=== PATIENT | female | born 2000 | race Caucasian/White ===

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

== ENCOUNTER 2020-06-29 19:45 | Emergency (ER) | payer MEDICAID, SELFPAY ==
[2020-06-29 19:46] VITALS: BP 133/90; PULSE 104; RESP 18; TEMP 36.2; O2SAT 98; BMI 48.4
[2020-06-29 19:59] LABS: Mucous, Urine 0 SEEN /hpf (<or=2+); Red Blood Cells-Urine 0 SEEN /hpf (0-5)
[2020-06-29 20:04] LABS: Color, Urine Yellow (Yellow); Glucose, Dipstick Normal (Normal); Ketone-Dipstick Negative (Negative); Leukocyte Esterase-Dipstick 100 /ul (Negative); Nitrite-Dipstick Negative (Negative); Occult Blood-Urine Negative /ul (Negative); Protein-Dipstick 15 mg/dl (Negative); Specific Gravity, Urine 1.015 (1.002-1.030); Urine Bilirubin Dipstick Negative (Negative); Urine Clarity Sl. Cloudy (Clear); Urine Urobilinogen Normal (Normal)
[2020-06-29 20:36] LABS: Bacteria RARE /hpf (None Seen); Squamous Epithelial Cells - UA 0-5 SEEN /hpf (5-10); White Blood Cells 0-5 SEEN /hpf (0-5)
[2020-06-29] MEDS: Ondansetron ODT 4 MG Tablet PO (21:18)
[2020-06-29 21:28] LABS: Internal QC Validated? YES +Cl - CLEAR BKGD; Pregnancy, Urine Negative Negative
--- NOTE | 2020-06-29 21:35 | ED.VISSUMM ---
- ER Visit Summary Date of Service: 06/29/20 Chief Complaint: Abdominal pain and vomiting History of Present Illness: The patient is a 19 F with no primary care physician. She reports that she was nauseated when she woke up this morning 630 and vomited once. She had abdominal pain that began after this. She describes a sharp pain that is 7-10 at worst and 3-10 currently. Is relieved by remaining still and worsened by movement. She reports that she remains nauseated all day. But she has not vomited since then. Patient's last bowel movement was today. She has had no diarrhea. No melena or hematochezia. No dysuria or frequency. She has a Nexplanon in place and has not had a period since then. She denies any vaginal bleeding or discharge. Patient denies sick contacts. Has not been camping out of the country. No possible bad food exposure. Does not drink well water. No recent antibiotic use. Physical Examination: Vitals: Stable. Afebrile. General: Well-nourished and well-developed. Head: Normocephalic atraumatic. Neck: Supple, no lymphadenopathy. No JVD. Nontender. Cardiovascular: Regular rate and rhythm. No murmurs. Respiratory: No respiratory distress. Clear to auscultation bilaterally. Abdominal: Soft, mild diffuse tenderness palpation over her lower abdomen. There is no pain that localizes in the right lower quadrant, nondistended, normal bowel sounds. No guarding, rebound, or peritoneal signs. Back: Nontender. Extremities: Nontender, no edema. Skin: Normal color, no rash. Neurologic: Alert and oriented ?3. Cranial nerves II through XII are intact. Normal strength and sensation. Psych: Normal affect. Test Results: Urinalysis is negative. test is negative. Emergency Department Course and Treatment: Patient's only vomited one time. I do not think that she needs an IV for fluids. She was given Zofran p.o. and got significant relief from this. Treatment Plan: Patient will be discharged with Zofran. Instructed to follow-up the [facility] in 1 to 2 days if not improving. Return to the emergency department for any worsening symptoms. Disposition: To home in improved and stable condition. Impression: 1. Vomiting. 2. Abdominal pain. This note was generated with [employer] dictation software. It may contain incorrect words, spelling, and punctuation that were not noted in review of the chart prior to signing ED Disposition - Plan for ED Patient: Instructions: ED Vomiting (Adult) Prescriptions: Ondansetron [Zofran Odt] 4 mg PO Q8H PRN PRN #10 tablet PRN Reason: Nausea Referrals: Birdie Wheatley [NON-STAFF] - 1-2 Days if not improving
== END 2020-06-29 21:48 | disposition home or self-care (01) ==
LOC: ED 21:32
PROVIDERS: Emergency Provider Emergency Medicine
DX: R11.2 Nausea with vomiting, unspecified (principal); R10.9 Unspecified abdominal pain; R51.9 Headache, unspecified; R05 Cough; J45.909 Unspecified asthma, uncomplicated; Z97.8 Presence of other specified devices; F17.200 Nicotine dependence, unspecified, uncomplicated
CPT/HCPCS: 81001; 81025; 99283

== ENCOUNTER → 2020-07-25 09:36 | Outpatient (CLI) | payer MEDICAID, SELFPAY ==
[2020-06-29 19:46] VITALS: BMI 48.4
--- NOTE | 2020-07-25 09:38 | US_ITS ---
STUDY: ABDOMINAL ULTRASOUND - RIGHT UPPER QUADRANT REASON FOR VISIT: Female, 19 years old ABD PAIN TECHNIQUE: Ultrasound evaluation of the right upper quadrant was performed with real-time and static klein-scale imaging. TECHNICAL QUALITY: Adequate. COMPARISON: None. FINDINGS: Liver: The liver measures 17.2 cm. There is increased echogenicity consistent with fatty infiltration. The bile ducts are within normal limits. There is hepatic color flow. The direction of portal flow is hepatopetal. There is no demonstrated mass lesion. Gallbladder: Normal distended gallbladder. The gallbladder wall measures 2.1 mm. There is a negative sonographic Caraballo''s sign. There is no pericholecystic fluid. There are no gallstones. Common Bile Duct (C.B.D.): The common bile duct measures 3.6 mm. Pancreas: Normal size of the head, body and tail of the pancreas. There is normal echogenicity of the pancreas. There is no demonstrated pancreatic mass or cyst. Right Kidney: Normal size of the right kidney. The right kidney measures 11.6 cm in length. Normal renal cortex. There is no demonstrated renal mass or cyst. There is no right hydronephrosis. US/Gallbladder IMPRESSION: Fatty infiltration of the liver. Electronically Signed: Philly Fields MD at 10:55 EDT Tel , Service support ,
== END ==
PROVIDERS: PCP Registered Nurse; Referring Provider Registered Nurse; Visit Provider Registered Nurse
DX: R11.0 Nausea (principal); R12 Heartburn
CPT/HCPCS: 76705

== ENCOUNTER 2020-11-26 18:51 | Emergency (ER) | payer MEDICAID, SELFPAY ==
[2020-11-26 18:52] VITALS: BP 171/106; PULSE 110; RESP 20; TEMP 36.7; O2SAT 97; BMI 52.2
--- NOTE | 2020-11-26 19:02 | EKG12_ITS ---
Test Reason : CP SOB Blood Pressure : / mmHG Vent. Rate : 113 BPM Atrial Rate : 113 BPM P-R Int : 138 ms QRS Dur : 088 ms QT Int : 310 ms P-R-T Axes : 042 005 071 degrees QTc Int : 425 ms Sinus tachycardia Low voltage QRS (Precordial Leads) Confirmed by GWEN CHOW, ALANA ([id number]), book or script editor MANINDER HERNANDEZ ([id number]) on 12/01/2020 9:48:40 AM Referred By: JODI Confirmed By:ALANA HIDALGO MD
--- NOTE | 2020-11-26 20:06 | RAD_ITS ---
INDICATION: cough EXAMINATION/TECHNIQUE: X-RAY - XR Chest 1 View COMPARISON: None. FINDINGS: The lungs are clear. The cardiomediastinal silhouette is unremarkable. No pleural effusion or pneumothorax. No acute osseous abnormalities. RAD/Chest 1 View IMPRESSION: No acute radiographic abnormalities. Electronically Signed: Franklin Johnson MD at 20:32 EDT Tel , Service support ,
--- NOTE | 2020-11-26 21:25 | EDS_ITS ---
HPI History of Present Illness Chief Complaint: Chest Pain Narrative Narrative: Patient presents with cough congestion some subjective fevers rhinorrhea and upper airway congestion for the past few days. She was seen in an urgent care today. She has no chest pain she has no shortness of breath the cough is nonproductive although she does feel like she has some mucus in the back of her throat that is difficult to,. She has no pleuritic component no lower extremity edema, she has no DVT or PE risk factors. PFSH PFSH Home Medications NK 11/26/20 [History Last Taken Unknown] Allergy/AdvReac Type Severity Reaction Status Date / Time amoxicillin [From Augmentin] Allergy Hives Verified 11/26/20 18:54 clavulanic acid Allergy Hives Verified 11/26/20 18:54 [From Augmentin] Social History Smoking Status: Current every day smoker tobacco type: cigarettes ROS ROS ED ROS Narrative Past medical history: Reviewed Medications: Reviewed Social history: Noncontributory Review of systems: All systems negative except as indicated General: Subjective fevers Eyes: No visual changes ENT: Upper airway congestion as in HPI Neck: No neck pain Cardiovascular: No chest pain Respiratory: No shortness of breath. Cough as in HPI Gastrointestinal: No abdominal pain, nausea vomiting or diarrhea Genitourinary: No dysuria Musculoskeletal: Denies myalgias no difficulty with ambulation Skin: No rash Neurological: No memory loss, confusion or any focal weakness Psych: No recent behavioral changes Hematologic: No easy bleeding or easy bruising EXAM Physical Exam Narrative Exam Narrative: Physical exam General: Well nourished, Well developed, No Acute Distress Head: Normocephalic, Atraumatic Eyes: Conjunctiva not pale ENT: Moist mucous membranes. There is upper airway congestion, rhinorrhea as well as swollen nasal turbinates. There is some postnasal drip but normal soft palate and a normal voice. Neck: Supple, Nontender, No lymphadenopathy Cardiovascular: Regular rate, Regular rhythm Respiratory: No distress, CTA bilaterally Abdomen: Soft, Nontender, Nondistended Back: Nontender, Normal Inspection. Negative for: CVA tenderness Extremities: Nontender, No edema Skin: Normal color, No rash Neurological: Alert, Normal Strength, Normal Sensation Psychological: Normal affect Const Vital Signs: 11/26/20 18:52 11/26/20 20:12 Temperature 98.1 F Temperature Source Temporal Pulse Rate 110 H Respiratory Rate 20 H Respiratory Effort Normal Non-Labored Blood Pressure 171/106 H Blood Pressure Mean 127 Pulse Ox 97 Oxygen Delivery Method Room Air MDM MDM MDM Narrative Medical decision making narrative: She had a slight tachycardia upon arrival, this improved with sitting. She has normal x-ray and negative Covid she appears well she likely has an upper respiratory infection but it is likely viral. No further treatment is needed. Radiography Diagnostic Testing: Radiology Impression Chest X-Ray 11/26/20 20:06 IMPRESSION: No acute radiographic abnormalities. Electronically Signed: Franklin Johnson MD at 20:32 EDT Tel , Service support , Discharge Plan Triage Chief Complaint: Chest Pain ED Provider: Brigido Ervin Dx/Rx/DC Orders Clinical Impression: Acute upper respiratory infection Instructions: ED URI, Viral, No Abx (Adult) Prescriptions: No Action NK RF: 0 Primary Care Provider: Mary Rogers NP Referrals: Mary Rogers NP, HYDRAULIC CORRUGATING MACHINE OPERATOR-C [Primary Care Provider] - 2 Days Disposition Disposition: Home, Self Care
[2020-11-26 21:47] VITALS: PULSE 112; TEMP 37.5
== END 2020-11-26 21:48 | disposition home or self-care (01) ==
PROVIDERS: Emergency Provider Emergency Medicine; PCP Registered Nurse
DX: J06.9 Acute upper respiratory infection, unspecified (principal); F17.210 Nicotine dependence, cigarettes, uncomplicated
CPT/HCPCS: 71045; 87426; 93005; 99282

== ENCOUNTER 2021-03-23 09:23 | Emergency (ER) | payer MEDICAID, SELFPAY ==
[2021-03-23 09:23] VITALS: BP 159/99; PULSE 96; RESP 16; TEMP 36.7; O2SAT 98; BMI 61.9
--- NOTE | 2021-03-23 09:30 | EKG12_ITS ---
Test Reason : CP Blood Pressure : / mmHG Vent. Rate : 092 BPM Atrial Rate : 092 BPM P-R Int : 140 ms QRS Dur : 102 ms QT Int : 338 ms P-R-T Axes : 024 011 044 degrees QTc Int : 417 ms Normal sinus rhythm Normal ECG Confirmed by GWEN CHOW, ALANA ([id number]), editor index MANINDER HERNANDEZ ([id number]) on 03/29/2021 8:28:35 AM Referred By: Confirmed By:ALANA HIDALGO MD
--- NOTE | 2021-03-23 09:33 | EDS_ITS ---
HPI History of Present Illness Chief Complaint: Chest Pain Informant: patient Onset/Context/Timing Onset: Today (30 minutes prior to arrival) Activity at onset: sudden Timing: Continuous Quality: Positive for Heaviness Location: Substernal Worsened By: Nothing Relieved By: Nothing Associated Symptoms: Positive for Dyspnea, Cough and Lightheadedness; Negative for Nausea, Vomiting, Diaphoresis, Fever, Acid Reflux and Palpitations Narrative Narrative: Patient presents with chest pain that began today. Patient states it began rather suddenly approximately 30 minutes prior to arrival. Patient describes her pain as a heaviness. Patient states it is over the substernal area. Patient admits to some lightheadedness with the pain. Patient states she was also feeling lightheaded yesterday but did not have any chest pain. Patient states nothing makes it better and nothing makes it worse. Patient does admit to some shortness of breath. CVD Risk Factors: Positive for Diabetes and Smoking; Negative for Hypertension, Hypercholesterolemia and Family History 1' </=55 PE Risk Factors: Negative for Recent Travel/Surgery, Recent Immobilization, Prior DVT or PE and Cancer PFSH PFSH Medical History no medical history Home Medications NK 11/26/20 [History Last Taken Unknown] Allergy/AdvReac Type Severity Reaction Status Date / Time amoxicillin [From Augmentin] Allergy Hives Verified 11/26/20 18:54 clavulanic acid Allergy Hives Verified 11/26/20 18:54 [From Augmentin] Surgical History no surgical history no surgical history Social History Smoking Status: Current every day smoker tobacco type: cigarettes ROS ROS ED Constitutional Constitutional ED: Denies chills or fever(s) Eyes Eyes: Denies blurry vision or change in vision ENT ENT ED: Denies rhinorrhea or sore throat Cardiovascular Cardiovascular: Reports chest pain; Denies palpitations Respiratory/Chest Respiratory/Chest: Reports cough and dyspnea Gastrointestinal Gastrointestinal: Reports nausea; Denies abdominal pain or vomiting Genitourinary Genitourinary ED: Denies dysuria or hematuria Musculoskeletal Musculoskeletal: Reports back pain; Denies neck pain Integumentary Denies abscess or rash Neurologic Neurologic: Denies headache(s) or weakness Allergic/Immunologic Allergic/Immunologic ED: Denies mouth swelling or urticaria EXAM Physical Exam Const Vital Signs: 03/23/21 09:23 03/23/21 09:26 03/23/21 09:43 Temperature 98.1 F Temperature Source Oral Pulse Rate 96 102 H Respiratory Rate 16 Respiratory Effort Normal Non-Labored Respiratory Pattern Normal Blood Pressure 159/99 H 165/104 H Blood Pressure Mean 119 Pulse Ox 98 Oxygen Delivery Method Room Air 03/23/21 09:45 03/23/21 10:23 03/23/21 12:30 Temperature Temperature Source Pulse Rate 88 89 Respiratory Rate 18 16 Respiratory Effort Respiratory Pattern Blood Pressure 112/96 H 110/79 Blood Pressure Mean 101 89 Pulse Ox 100 100 98 Oxygen Delivery Method Room Air Room Air Room Air Positive well nourished, well developed and obese General Appearance ED: well developed Nutritional Appearance: obese HEENT normocephalic and atraumatic Eyes PERRL and EOMs intact bilaterally Neck supple and no JVD Chest Wall palpation of chest normal Resp normal respiratory effort and clear to auscultation bilaterally Effort and Inspection: Negative for respiratory distress Cardio regular rate, regular rhythm and no murmurs GI normal to inspection, nondistended, normoactive bowel sounds, soft to palpation, non-tender and non-distended Extremity normal to inspection General Extremety ED: Negative for edema or tenderness General Extremity: Negative for edema Neuro oriented x3, CN's II-XII intact bilaterally and no sensory deficits noted Sensorium / Orientation: awake and alert Motor Exam: strength 5/5 throughout Psych mental status grossly normal Heart Score History: Slightly/Non-Suspicious ECG: Normal Age: </= 45 years Risk Factors: 1 or 2 Risk Factors Troponin: </= Normal Limit Score: 1 MDM MDM MDM Narrative Medical decision making narrative: Patient was given aspirin here. EKG was obtained. On my interpretation, it showed a normal sinus rhythm with a rate of 92. OR interval, QRS interval, and QTc intervals were all normal. [place] was normal. There are no acute ST or T wave changes. Portable 1 view chest x-ray was obtained. On my interpretation, lung miranda are clear. There is normal cardiac silhouette. Bony thorax is normal. There is no acute process noted. Radiologist also interpreted the x-ray and agrees. CBC was within normal limits. Basic metabolic profile was within normal limits. D-dimer was obtained and was negative. Initial high-sensitivity troponin was normal at 5. 2-hour repeat high-sensitivity troponin was normal at 6. Patient has a HEART score of 1. Patient was advised that this is low risk for acute cardiac event. Patient was instructed to follow-up with her primary care physician in 5 to 7 days for further evaluation. Patient understands and is agreeable with the plan. All questions were answered. Lab Data Attestation: I reviewed the patient's lab results. Labs: Laboratory Results - last 24 hr 03/23/21 03/23/21 03/23/21 09:30 09:30 09:30 WBC 11.2 H RBC 4.89 Hgb 12.9 Hct 40.7 MCV 83.2 MCH 26.4 L MCHC 31.7 L RDW Std Deviation 44.1 H RDW Coeff of Giovana 14.6 Plt Count 405 MPV 10.3 Immature Gran % (Auto) 0.900 Neut % (Auto) 68.3 Lymph % (Auto) 25.2 [place] % (Auto) 4.7 Eos % (Auto) 0.6 Baso % (Auto) 0.3 Absolute Neuts (auto) 7.6 Absolute Lymphs (auto) 2.81 Nucleated RBC % 0 D-Dimer Quant (PE/DVT) <= 0.27 Sodium 140 Potassium 3.8 Chloride 108 H Carbon Dioxide 25.0 Anion Gap 7 BUN 8 Creatinine 0.60 Estim Creat Clear Calc 123.72 Est GFR (MDRD) Af Amer 163 Est GFR (MDRD) Non-Af 135 BUN/Creatinine Ratio 13.3 Glucose 101 Calcium 8.9 Troponin I High Sens 5 03/23/21 11:50 WBC RBC Hgb Hct MCV MCH MCHC RDW Std Deviation RDW Coeff of Giovana Plt Count MPV Immature Gran % (Auto) Neut % (Auto) Lymph % (Auto) [place] % (Auto) Eos % (Auto) Baso % (Auto) Absolute Neuts (auto) Absolute Lymphs (auto) Nucleated RBC % D-Dimer Quant (PE/DVT) Sodium Potassium Chloride Carbon Dioxide Anion Gap BUN Creatinine Estim Creat Clear Calc Est GFR (MDRD) Af Amer Est GFR (MDRD) Non-Af BUN/Creatinine Ratio Glucose Calcium Troponin I High Sens 6 Radiography Chest X-Ray - ED: 1 View, Read by ED Physician, Read by Radiologist and Normal Diagnostic Testing: Clinical Impression(s) from Imaging Studies Chest X-Ray 03/23/21 09:48 IMPRESSION: Normal x-ray examination of the chest. Electronically Signed: Fam Mendoza MD at 10:36 EST , Service support , EKG Initial EKG: Attestation: I personally reviewed and interpreted this EKG as follows: Interpretation: Sinus Rhythm (92) and No Acute Injury Pattern Prior EKG tracings: available for review Prior: Unchanged (11/26/2020) Discharge Plan Triage Chief Complaint: Chest Pain ED Provider: Meek Arzola Dx/Rx/DC Orders Clinical Impression: Chest pain Instructions: ED Chest Pain, Uncertain Cause Prescriptions: No Action NK RF: 0 Primary Care Provider: Mary Rogers NP Referrals: Mary Rogers NP, MAJOR APPLIANCE ASSEMBLY SUPERVISOR-C [Primary Care Provider] - 5-7 Days Disposition Disposition: Home, Self Care
[2021-03-23 09:43] VITALS: BP 165/104; PULSE 102
[2021-03-23] MEDS: Nitroglycerin SL (ED/IMG/CATH) 0.4 MG TABLET SL (09:43)
[2021-03-23] MEDS: Aspirin 81 MG TAB.CHEW 324 MG PO (09:43)
[2021-03-23 09:45] VITALS: O2SAT 100
--- NOTE | 2021-03-23 09:48 | RAD_ITS ---
STUDY: X-RAY CHEST REASON FOR EXAM: Female, 20 years old. Chest pain TECHNIQUE: Single AP portable view of the chest. COMPARISON: Comparison is made with prior study 11/26/2020 FINDINGS: EKG electrodes are seen Elevation of the right hemidiaphragm the lungs are clear. There is no demonstrated pleural abnormality. Normal size heart. Normal mediastinum and scott. Normal visualized pulmonary arteries. Normal visualized aortic arch and descending thoracic aorta. Normal visualized thoracic spine. Normal visualized ribs, clavicles, and shoulders. There is no demonstrated abnormality of the visualized soft tissue structures of the upper abdomen. RAD/Chest 1 View (Portable) IMPRESSION: Normal x-ray examination of the chest. Electronically Signed: Fam Mendoza MD at 10:36 EST , Service support ,
[2021-03-23 09:57] LABS: Absolute Lymphocyte Count 2.81 X10^3/uL (0.83-4.51); Absolute Neutrophil Count 7.6 X10^3/uL (2.0-7.7); Basophil# 0.03 X10^3/uL; Basophil% 0.3 % (0-1); Eosinophil# 0.07 X10^3/uL; Eosinophils% 0.6 % (0-5); Hematocrit 40.7 % (37-47); Hemoglobin 12.9 g/dL (12.0-15.0); Lymphocyte # 2.81 X10^3/ul (0.83-4.51); Lymphocyte % 25.2 % (19-41); Mean Corp Hgb Conc 31.7 g/dL (32-36); Mean Corpuscular Hgb 26.4 pg (27.0-32.0); Mean Corpuscular Volume 83.2 fL (81-99); Mean Platelet Vol. 10.3 fl (6.2-12.0); Monocyte# 0.52 X10^3/uL; Monocyte% 4.7 % (0-10); NRBC Flagged by Analyzer 0 % (0-5); Neutrophil # 7.64 X10^3/uL (2.7-7.7); Neutrophil % 68.3 % (47-70); Platelet Count 405 K/mm3 (150-450); RBC Distribution Width CV 14.6 % (11.6-14.6); RBC Distribution Width SD 44.1 fl (35.1-43.9); Red Blood Count 4.89 M/mm3 (4.2-5.4); White Blood Count 11.2 K/mm3 (4.4-11.0)
[2021-03-23 10:14] LABS: D-Dimer Quantitative (DVT/PE) <= 0.27 FEU/ug/m (0.27-0.49)
[2021-03-23 10:15] LABS: Anion Gap 7 (5-15); BUN 8 mg/dL (7-18); BUN/Creat Ratio 13.3 RATIO (10-20); Calcium,Total 8.9 mg/dL (8.5-10.1); Chloride 108 mmol/L (98-107); EST Glomerular Filtration Rate 135 mL/min (>60); Est Glom Filt Rate - Afr Amer 163 mL/min (>60); Estimated Creatinine Clearance 123.72 ml/min; Glucose 101 mg/dL (74-106); Potassium 3.8 mmol/L (3.5-5.1); Sodium Level 140 mmol/L (136-145); Troponin-I HS 5 pg/mL (3.0-54.0)
[2021-03-23 10:23] VITALS: BP 112/96; PULSE 88; RESP 18; O2SAT 100
[2021-03-23 12:20] LABS: Troponin-I HS 6 pg/mL (3.0-54.0)
[2021-03-23 12:30] VITALS: BP 110/79; PULSE 89; RESP 16; O2SAT 98
[2021-03-23 13:09] VITALS: BP 113/68; PULSE 96; RESP 18; O2SAT 100
== END 2021-03-23 13:17 | disposition home or self-care (01) ==
PROVIDERS: Emergency Provider Emergency Medicine; PCP Registered Nurse
DX: R07.9 Chest pain, unspecified (principal); R06.00 Dyspnea, unspecified; R05.9 Cough, unspecified; R42 Dizziness and giddiness; R11.0 Nausea; E66.9 Obesity, unspecified; Z68.44 Body mass index [BMI] 60.0-69.9, adult; F17.210 Nicotine dependence, cigarettes, uncomplicated
CPT/HCPCS: 71045; 80048; 84484; 85025; 85379; 87426; 93005; 99285; A4216

== ENCOUNTER 2021-08-11 18:39 | Emergency (ER) | payer MEDICAID, SELFPAY ==
[2021-08-11 18:40] VITALS: BP 157/105; PULSE 128; RESP 18; TEMP 36.8; O2SAT 98; BMI 49.6
--- NOTE | 2021-08-11 19:00 | EDS_ITS ---
HPI History of Present Illness Chief Complaint: Abd Pain Informant: patient Onset/Context/Timing Onset: Days Context: Gradual Onset Timing: Waxes and wanes Current Severity: Mild Maximum Severity: Moderate Narrative Narrative: Patient presents with 3-day history of lower abdominal pain. She states is across the entire lower abdomen but worse on the right. It is intermittent. Patient denies fever or chills. No nausea, vomiting, or diarrhea. Pain does not change when she eats. She denies urinary symptoms. She states she does not have menstrual cycles because she has the control implant. She does believe her doctor had told her in the past that she had ovarian cysts. [facility] Medical History Asthma Depression Edema Home Medications albuterol sulfate 2 puff INHALATION Q4H PRN PRN 08/11/21 [History Last Taken Unknown] hydrochlorothiazide 12.5 mg PO DAILY 08/11/21 [History Last Taken Unknown] ondansetron 4 mg PO Q8 PRN 08/11/21 [History Last Taken Unknown] sertraline 50 mg PO DAILY 08/11/21 [History Last Taken Unknown] sulfamethoxazole-trimethoprim [Bactrim DS] 1 tab PO BID #6 tab 08/11/21 [Rx Last Taken Unknown] Allergy/AdvReac Type Severity Reaction Status Date / Time amoxicillin [From Augmentin] Allergy Hives Verified 08/11/21 18:41 clavulanic acid Allergy Hives Verified 08/11/21 18:41 [From Augmentin] Social History Smoking Status: Current every day smoker tobacco type: cigarettes ROS ROS ED Constitutional Constitutional ED: Denies chills or fever(s) Eyes Eyes: Denies change in vision ENT ENT ED: Denies sore throat Cardiovascular Cardiovascular: Denies chest pain Respiratory/Chest Respiratory/Chest: Denies cough or dyspnea Gastrointestinal Gastrointestinal: Reports abdominal pain; Denies diarrhea, nausea or vomiting Genitourinary Genitourinary ED: Denies dysuria or hematuria Musculoskeletal Musculoskeletal: Denies back pain or neck pain Integumentary Denies rash Neurologic Neurologic: Denies headache(s) or weakness Allergic/Immunologic Allergic/Immunologic ED: Denies urticaria EXAM Physical Exam Const Vital Signs: 08/11/21 18:40 Temperature 98.3 F Temperature Source Temporal Pulse Rate 128 H Respiratory Rate 18 Blood Pressure 157/105 H Blood Pressure Mean 122 Pulse Ox 98 Oxygen Delivery Method Room Air Positive well nourished and well developed General Appearance ED: well developed HEENT Reports moist mucous membranes Eyes PERRL and EOMs intact bilaterally Neck supple Chest Wall inspection of chest normal and palpation of chest normal Resp normal respiratory effort and clear to auscultation bilaterally Cardio regular rate and regular rhythm GI Palpation: soft and tender other (Mild lower abdominal tenderness palpation. No guarding or rebound. Normal bowel sounds noted.) Neuro oriented x3 Sensorium / Orientation: alert Psych mental status grossly normal Skin no rashes or lesions noted MDM MDM MDM Narrative Medical decision making narrative: Patient given IV fluid and Zofran. Lab work, urinalysis, CT flank obtained. Lab Data Attestation: I reviewed the patient's lab results. Labs: Laboratory Results - last 24 hr 08/11/21 08/11/21 08/11/21 19:12 19:12 19:12 WBC 12.3 H RBC 4.70 Hgb 12.6 Hct 39.2 MCV 83.4 MCH 26.8 L MCHC 32.1 RDW Std Deviation 45.0 H RDW Coeff of Giovana 14.7 H Plt Count 372 MPV 10.2 Immature Gran % (Auto) 0.800 Neut % (Auto) 68.1 Lymph % (Auto) 25.2 [place] % (Auto) 4.6 Eos % (Auto) 1.0 Baso % (Auto) 0.3 Absolute Neuts (auto) 8.4 H Absolute Lymphs (auto) 3.10 Nucleated RBC % 0 Sodium 143 Potassium 3.6 Chloride 112 H Carbon Dioxide 26.0 Anion Gap 5 BUN 9 Creatinine 0.56 Estim Creat Clear Calc 132.56 Est GFR (MDRD) Af Amer 177 Est GFR (MDRD) Non-Af 147 BUN/Creatinine Ratio 16.2 Glucose 106 Calcium 8.6 Serum , Qual NEGATIVE Urine Color Urine Clarity Urine pH Ur Specific [place] Urine Protein Urine Glucose (UA) Urine Ketones Urine Occult Blood Urine Nitrite Urine Bilirubin Urine Urobilinogen Ur Leukocyte Esterase Urine RBC Urine WBC Ur Squamous Epith Cells Urine Bacteria Urine Mucus 08/11/21 19:20 WBC RBC Hgb Hct MCV MCH MCHC RDW Std Deviation RDW Coeff of Giovana Plt Count MPV Immature Gran % (Auto) Neut % (Auto) Lymph % (Auto) [place] % (Auto) Eos % (Auto) Baso % (Auto) Absolute Neuts (auto) Absolute Lymphs (auto) Nucleated RBC % Sodium Potassium Chloride Carbon Dioxide Anion Gap BUN Creatinine Estim Creat Clear Calc Est GFR (MDRD) Af Amer Est GFR (MDRD) Non-Af BUN/Creatinine Ratio Glucose Calcium Serum , Qual Urine Color Yellow Urine Clarity Sl. Cloudy Urine pH 6.0 Ur Specific [place] 1.025 Urine Protein 15 H Urine Glucose (UA) Normal Urine Ketones Negative Urine Occult Blood 10 H Urine Nitrite Negative Urine Bilirubin Negative Urine Urobilinogen Normal Ur Leukocyte Esterase 500 H Urine RBC 0-5 SEEN Urine WBC 50-100 SEEN Ur Squamous Epith Cells 10-25 SEEN Urine Bacteria 2+ Urine Mucus 0 SEEN Radiography Diagnostic Testing: Clinical Impression(s) from Imaging Studies Abdomen/Pelvis CT 08/11/21 20:22 IMPRESSION: No hydronephrosis or urinary tract calcifications. Electronically Signed: Jl Alonso MD ([place]) at 20:40 EDT , Treatment and Re-Evaluation Narrative: Lab work reveals mild elevation of white count to 12.3. Chemistry studies unremarkable. test negative. Urinalysis does show 50-100 white cells with 2+ bacteria, however 10-25 epithelial cells are also noted. CT scan reveals no evidence of kidney stone. Appendix is visualized and appears normal. No large cystic structures consistent with ovarian cyst appreciated. Test results discussed with the patient. I did advise her that her urine does appear to be infected, however was not a clean sample. We will treat her with 3 days of an antibiotic to ensure her urine is clear. Vital signs are be rechecked prior to discharge. Return instructions provided. Discharge Plan Triage Chief Complaint: Abd Pain ED Provider: Elaina Felix Dx/Rx/DC Orders Clinical Impression: UTI (urinary tract infection), Pelvic pain Instructions: ED CYSTITIS Female Adult Prescriptions: New sulfamethoxazole-trimethoprim [Bactrim DS] 800-160 mg tablet 1 tab PO BID Qty: 6 RF: 0 No Action hydrochlorothiazide 12.5 mg capsule 12.5 mg PO DAILY RF: 0 albuterol sulfate 90 mcg/actuation HFA aerosol inhaler 2 puff INHALATION Q4H PRN PRN (Reason: Wheezing) RF: 0 ondansetron 4 mg tablet,disintegrating 4 mg PO Q8 PRN (Reason: Nausea) RF: 0 sertraline 50 mg tablet 50 mg PO DAILY RF: 0 Primary Care Provider: Mary Rogers NP Referrals: Mary Rogers NP, [facility] [Primary Care Provider] - 1 Week if not improving Disposition Disposition: Home, Self Care
[2021-08-11 19:24] LABS: Mucous, Urine 0 SEEN /hpf (<or=2+)
[2021-08-11 19:24] LABS: Absolute Neutrophil Count 8.4 X10^3/uL (2.0-7.7); Basophil# 0.04 X10^3/uL; Basophil% 0.3 % (0-1); Eosinophil# 0.12 X10^3/uL; Hematocrit 39.2 % (37-47); Hemoglobin 12.6 g/dL (12.0-15.0); Lymphocyte % 25.2 % (19-41); Mean Corp Hgb Conc 32.1 g/dL (32-36); Mean Corpuscular Hgb 26.8 pg (27.0-32.0); Mean Corpuscular Volume 83.4 fL (81-99); Mean Platelet Vol. 10.2 fl (6.2-12.0); Monocyte# 0.57 X10^3/uL; Monocyte% 4.6 % (0-10); NRBC Flagged by Analyzer 0 % (0-5); Neutrophil # 8.36 X10^3/uL (2.7-7.7); Neutrophil % 68.1 % (47-70); Platelet Count 372 K/mm3 (150-450); RBC Distribution Width CV 14.7 % (11.6-14.6); White Blood Count 12.3 K/mm3 (4.4-11.0)
[2021-08-11 19:26] LABS: Color, Urine Yellow (Yellow); Glucose, Dipstick Normal (Normal); Ketone-Dipstick Negative (Negative); Leukocyte Esterase-Dipstick 500 /ul (Negative); Nitrite-Dipstick Negative (Negative); Occult Blood-Urine 10 /ul (Negative); Protein-Dipstick 15 mg/dl (Negative); Specific Gravity, Urine 1.025 (1.002-1.030); Urine Bilirubin Dipstick Negative (Negative); Urine Clarity Sl. Cloudy (Clear); Urine Urobilinogen Normal (Normal)
[2021-08-11] MEDS: Ketorolac 30 MG/ML Syringe IV (19:26)
[2021-08-11] MEDS: 0.9% Normal Saline 1,000 ML 1000 ML IV (19:26)
[2021-08-11 19:31] LABS: Squamous Epithelial Cells - UA 10-25 SEEN /hpf (5-10)
[2021-08-11 19:32] LABS: Bacteria 2+ /hpf (None Seen); Red Blood Cells-Urine 0-5 SEEN /hpf (0-5); White Blood Cells 50-100 SEEN /hpf (0-5)
[2021-08-11 19:36] LABS: Anion Gap 5 (5-15); BUN 9 mg/dL (7-18); BUN/Creat Ratio 16.2 RATIO (10-20); Calcium,Total 8.6 mg/dL (8.5-10.1); Chloride 112 mmol/L (98-107); Creatinine, Serum 0.56 mg/dL (0.55-1.02); EST Glomerular Filtration Rate 147 mL/min (>60); Est Glom Filt Rate - Afr Amer 177 mL/min (>60); Estimated Creatinine Clearance 132.56 ml/min; Glucose 106 mg/dL (74-106); Potassium 3.6 mmol/L (3.5-5.1); Sodium Level 143 mmol/L (136-145)
[2021-08-11 20:13] LABS: Internal QC Validated? YES +Cl - CLEAR BKGD; Pregnancy, Serum, hCG Quali. NEGATIVE Negative
--- NOTE | 2021-08-11 20:22 | CT_ITS ---
STUDY: CT ABDOMEN AND PELVIS WITHOUT CONTRAST REASON FOR EXAM: Female, 20 years old. abd pain RADIATION DOSAGE (If Supplied By Facility): CTDIvol = ( 24.18 ) mGy, DLP = ( 1419.63 ) mGycm TECHNIQUE: Transaxial images were obtained from the dome of the diaphragm to the symphysis pubis without oral contrast, and without intravenous contrast. Sagittal and coronal images were reconstructed. Individualized dose optimization techniques were used for this CT. COMPARISON: None. FINDINGS: The visualized lung bases are unremarkable. The visualized portions of the heart are within normal limits. There is decreased attenuation of the liver consistent with steatosis. The gallbladder is contracted. Normal spleen. Normal pancreas. Normal bilateral adrenal glands. Normal right kidney. Normal left kidney. Normal visualized stomach. Normal small intestine. Normal colon. The appendix is visualized and appears normal. Normal abdominal aorta. Normal inferior vena cava. Normal retroperitoneum. Normal urinary bladder. Normal abdominal wall. Normal osseous structures. CT/Abdomen/Pelvis without Cont IMPRESSION: No hydronephrosis or urinary tract calcifications. Electronically Signed: Jl Alonso MD ([place]) at 20:40 EDT Reading Location ID and State: [facility] / [place] , Service support ,
[2021-08-11 21:09] VITALS: BP 147/91; PULSE 99; RESP 16; O2SAT 98
[2021-08-11] MEDS: Smz/Tmp Ds Tablet 1 TABLET PO (21:17)
== END 2021-08-11 21:20 | disposition home or self-care (01) ==
PROVIDERS: Emergency Provider Emergency Medicine; PCP Registered Nurse; Visit Provider Emergency Medicine
DX: N39.0 Urinary tract infection, site not specified (principal); F17.210 Nicotine dependence, cigarettes, uncomplicated; F32.A Depression, unspecified; J45.909 Unspecified asthma, uncomplicated; Z79.899 Other long term (current) drug therapy
CPT/HCPCS: 74176; 80048; 81001; 84703; 85025; 96361; 96374; 99283; J7030; A4216